=== PATIENT | female | born 1995 | race Caucasian/White ===

== ENCOUNTER 2018-01-13 03:01 | Emergency (ER) | payer MEDICAID | END 2018-01-13 03:30 | disposition home or self-care (01) | LOC: FTE 03:01 | DX: O99.89 Other specified diseases and conditions complicating pregnancy, childbirth and the puerperium (principal); R07.89 Other chest pain; Z3A.24 24 weeks gestation of pregnancy | CPT/HCPCS: 93005; 99283-25 ==

== ENCOUNTER 2018-01-13 04:20 | Outpatient (CLI) | payer MEDICAID ==
[2018-01-13 06:40] LABS: ADD UMIC YES; UR ASCORBIC ACID NEGATIVE (NEGATIVE); UR BACTERIA FEW /HPF (NONE SEEN); UR BILIRUBIN (Dip) NEGATIVE (NEGATIVE); UR BLOOD (Dip) NEGATIVE (NEGATIVE); UR CLARITY CLEAR (CLEAR); UR COLOR STRAW (YELLOW); UR GLUCOSE (Dip) NEGATIVE (NEGATIVE); UR KETONES (Dip) NEGATIVE (NEGATIVE); UR LEUKOCYTE ESTERASE (Dip) 1+ Leu/ul (NEGATIVE); UR NITRITE (Dip) NEGATIVE (NEGATIVE); UR RBC 1 /HPF (0-5); UR SPECIFIC GRAVITY (Dip) 1.003 (1.003-1.030); UR SQUAMOUS EPITHELIAL CELL FEW /HPF (FEW); UR TOTAL PROTEIN (Dip) NEGATIVE (NEGATIVE); UR UROBILINOGEN (Dip) NEGATIVE (NEGATIVE); UR WBC 4 /HPF (0-5)
[2018-01-13 08:06] LABS: ADD MAN DIFF? NO
[2018-01-13 08:08] LABS: BASOPHILS % 0.3 % (0.0-2.0); EOSINOPHILS # 0.1 10^3/ul (0.0-0.5); EOSINOPHILS % 1.3 % (0.0-7.0); HEMATOCRIT 38.6 % (37.0-47.0); HEMOGLOBIN 12.8 g/dl (12.0-16.0); LYMPHOCYTES # 1.8 10^3/ul (0.8-2.9); MEAN CORPUSCULAR HEMOGLOBIN 28.6 pg (29.0-33.0); MEAN CORPUSCULAR HGB CONC 33.2 g/dl (32.0-37.0); MEAN CORPUSCULAR VOLUME 86.2 fl (82.0-101.0); MEAN PLATELET VOLUME 10.5 fl (7.4-10.4); MONOCYTE # 0.5 10^3/ul (0.3-0.9); MONOCYTES % 4.3 % (0.0-11.0); NEUTROPHIL # 8.7 10^3/ul (1.6-7.5); NEUTROPHILS % 77.7 % (39.0-77.0); PLATELET COUNT 211 10^3/UL (140-415); RED BLOOD COUNT 4.48 10^6/ul (4.20-5.40)
[2018-01-13 08:08] LABS: WHITE BLOOD COUNT 11.1 10^3/ul (4.8-10.8)
[2018-01-13 09:03] LABS: ALANINE AMINOTRANSFERASE 26 IU/L (13-69); ALBUMIN/GLOBULIN RATIO 1.11; ALKALINE PHOSPHATASE 71 IU/L (42-121); ANION GAP 11 (8-16); ASPARTATE AMINO TRANSFERASE 25 IU/L (15-46); BILIRUBIN,INDIRECT 0.2 mg/dl (0-1.1); BILIRUBIN,TOTAL 0.2 mg/dl (0.2-1.3); BLOOD UREA NITROGEN 7 mg/dl (7-20); CALCIUM 9.7 mg/dl (8.4-10.2); CARBON DIOXIDE 25 mmol/L (21-31); CHLORIDE 106 mmol/L (97-110); CREATININE 0.56 mg/dl (0.44-1.00); GLUCOSE 80 mg/dl (70-220); POTASSIUM 4.4 mmol/L (3.5-5.1); SODIUM 138 mmol/L (135-144); TOTAL PROTEIN 7.6 g/dl (6.1-8.1); URIC ACID 3.6 mg/dl (3.1-7.9)
[2018-01-13 10:57] LABS: RUPTURE FETAL MEMBRANES NEGATIVE (NEGATIVE)
== END 2018-01-13 11:30 | disposition home or self-care (01) ==
LOC: OBT 04:20 → L-D 04:20 → OBT 11:30
DX: O62.9 Abnormality of forces of labor, unspecified (principal); Z3A.24 24 weeks gestation of pregnancy
CPT/HCPCS: 76815; 76817; 80053; 81001; 84112; 84560; 85025

== ENCOUNTER 2018-01-15 10:58 | Outpatient (CLI) | payer MEDICAID | END 2018-01-15 13:49 | disposition home or self-care (01) | LOC: OBT 10:58 → L-D 10:58 → OBT 13:49 | DX: O36.8320 Maternal care for abnormalities of the fetal heart rate or rhythm, second trimester, not applicable or unspecified (principal); Z3A.22 22 weeks gestation of pregnancy | CPT/HCPCS: 76818 ==

== ENCOUNTER 2018-03-23 12:50 | Outpatient (CLI) | payer MEDICAID ==
[2018-03-23 13:51] LABS: ADD MAN DIFF? NO
[2018-03-23 13:53] LABS: BASOPHILS % 0.3 % (0.0-2.0); EOSINOPHILS # 0.1 10^3/ul (0.0-0.5); EOSINOPHILS % 1.3 % (0.0-7.0); HEMATOCRIT 36.2 % (37.0-47.0); HEMOGLOBIN 12.3 g/dl (12.0-16.0); LYMPHOCYTES # 1.6 10^3/ul (0.8-2.9); LYMPHOCYTES % 17.3 % (15.0-51.0); MEAN CORPUSCULAR HEMOGLOBIN 28.9 pg (29.0-33.0); MEAN PLATELET VOLUME 10.2 fl (7.4-10.4); MONOCYTE # 0.3 10^3/ul (0.3-0.9); MONOCYTES % 3.6 % (0.0-11.0); NEUTROPHIL # 7.3 10^3/ul (1.6-7.5); NEUTROPHILS % 77.2 % (39.0-77.0); PLATELET COUNT 188 10^3/UL (140-415); RED BLOOD COUNT 4.26 10^6/ul (4.20-5.40); RED CELL DISTRIBUTION WIDTH 13.8 % (11.5-14.5)
[2018-03-23 13:53] LABS: WHITE BLOOD COUNT 9.5 10^3/ul (4.8-10.8)
[2018-03-23 14:12] LABS: INR 0.93; PROTIME 12.5 Sec (11.9-14.9)
[2018-03-23 14:13] LABS: PARTIAL THROMBOPLASTIN TIME 28.2 Sec (23.0-35.0)
[2018-03-23 14:17] LABS: ADD UMIC YES; UR ASCORBIC ACID NEGATIVE (NEGATIVE); UR BACTERIA FEW /HPF (NONE SEEN); UR BILIRUBIN (Dip) NEGATIVE (NEGATIVE); UR BLOOD (Dip) NEGATIVE (NEGATIVE); UR CLARITY SLIGHTLY CLOUDY (CLEAR); UR COLOR YELLOW (YELLOW); UR GLUCOSE (Dip) NEGATIVE (NEGATIVE); UR KETONES (Dip) TRACE mg/dL (NEGATIVE); UR LEUKOCYTE ESTERASE (Dip) TRACE Leu/ul (NEGATIVE); UR NITRITE (Dip) NEGATIVE (NEGATIVE); UR RBC 0 /HPF (0-5); UR TOTAL PROTEIN (Dip) NEGATIVE (NEGATIVE); UR UROBILINOGEN (Dip) NEGATIVE (NEGATIVE); UR WBC 4 /HPF (0-5)
[2018-03-23 14:19] LABS: ALANINE AMINOTRANSFERASE 18 IU/L (13-69); ALBUMIN/GLOBULIN RATIO 0.88; ALKALINE PHOSPHATASE 98 IU/L (42-121); ANION GAP 11 (8-16); ASPARTATE AMINO TRANSFERASE 23 IU/L (15-46); BILIRUBIN,INDIRECT 0.2 mg/dl (0-1.1); BILIRUBIN,TOTAL 0.2 mg/dl (0.2-1.3); BLOOD UREA NITROGEN 7 mg/dl (7-20); CALCIUM 9.6 mg/dl (8.4-10.2); CARBON DIOXIDE 24 mmol/L (21-31); CHLORIDE 105 mmol/L (97-110); CREATININE 0.53 mg/dl (0.44-1.00); GLUCOSE 124 mg/dl (70-220); POTASSIUM 3.8 mmol/L (3.5-5.1); SODIUM 136 mmol/L (135-144); TOTAL PROTEIN 6.4 g/dl (6.1-8.1)
[2018-03-23 14:43] LABS: URIC ACID 4.2 mg/dl (3.1-7.9)
== END 2018-03-23 15:00 | disposition home or self-care (01) ==
LOC: OBT 12:50 → L-D 12:50 → OBT 15:00
DX: O13.3 Gestational [pregnancy-induced] hypertension without significant proteinuria, third trimester (principal); O36.8330 Maternal care for abnormalities of the fetal heart rate or rhythm, third trimester, not applicable or unspecified; Z3A.33 33 weeks gestation of pregnancy
CPT/HCPCS: 36415; 76818; 80053; 81001; 84560; 85025; 85610; 85730

== ENCOUNTER 2018-03-24 18:23 | Outpatient (CLI) | payer MEDICAID ==
[2018-03-24 18:56] LABS: COLLECTION PERIOD 24 hrs
[2018-03-24 19:39] LABS: VOLUME 4100 mls
[2018-03-24 19:42] LABS: ADD MAN DIFF? NO
[2018-03-24 19:45] LABS: WHITE BLOOD COUNT 10.3 10^3/ul (4.8-10.8)
[2018-03-24 19:45] LABS: BASOPHILS % 0.4 % (0.0-2.0); EOSINOPHILS # 0.2 10^3/ul (0.0-0.5); EOSINOPHILS % 2.2 % (0.0-7.0); HEMATOCRIT 37.9 % (37.0-47.0); HEMOGLOBIN 12.7 g/dl (12.0-16.0); LYMPHOCYTES # 2.1 10^3/ul (0.8-2.9); LYMPHOCYTES % 19.9 % (15.0-51.0); MEAN CORPUSCULAR HEMOGLOBIN 28.5 pg (29.0-33.0); MEAN CORPUSCULAR HGB CONC 33.5 g/dl (32.0-37.0); MEAN CORPUSCULAR VOLUME 85.2 fl (82.0-101.0); MEAN PLATELET VOLUME 10.4 fl (7.4-10.4); MONOCYTE # 0.6 10^3/ul (0.3-0.9); MONOCYTES % 5.4 % (0.0-11.0); NEUTROPHIL # 7.4 10^3/ul (1.6-7.5); NEUTROPHILS % 71.8 % (39.0-77.0); PLATELET COUNT 213 10^3/UL (140-415); RED BLOOD COUNT 4.45 10^6/ul (4.20-5.40); RED CELL DISTRIBUTION WIDTH 13.6 % (11.5-14.5)
[2018-03-24 20:04] LABS: INR 0.93; PROTIME 12.6 Sec (11.9-14.9)
[2018-03-24 20:05] LABS: ALANINE AMINOTRANSFERASE 22 IU/L (13-69); ALBUMIN 3.2 g/dl (3.3-4.9); ALBUMIN/GLOBULIN RATIO 0.91; ALKALINE PHOSPHATASE 111 IU/L (42-121); ANION GAP 11 (8-16); ASPARTATE AMINO TRANSFERASE 23 IU/L (15-46); BILIRUBIN,INDIRECT 0.2 mg/dl (0-1.1); BILIRUBIN,TOTAL 0.2 mg/dl (0.2-1.3); BLOOD UREA NITROGEN 7 mg/dl (7-20); CALCIUM 9.6 mg/dl (8.4-10.2); CARBON DIOXIDE 23 mmol/L (21-31); CHLORIDE 106 mmol/L (97-110); CREATININE 0.51 mg/dl (0.44-1.00); GLUCOSE 100 mg/dl (70-220); PARTIAL THROMBOPLASTIN TIME 27.7 Sec (23.0-35.0); POTASSIUM 3.5 mmol/L (3.5-5.1); SODIUM 136 mmol/L (135-144); TOTAL PROTEIN 6.7 g/dl (6.1-8.1)
[2018-03-24 20:35] LABS: CREATININE,URINE RANDOM 47.44 mg/dl (20-320)
[2018-03-24 20:36] LABS: COLLECTION PERIOD 24 hrs; CREATININE CLEARANCE 264.8 mls/min (84.0-162.0); SCRET 0.51 mg/dl (0.44-1.00); VOLUME 4100 ml/24hrs
== END 2018-03-24 21:14 | disposition home or self-care (01) ==
LOC: OBT 18:23 → L-D 18:24 → OBT 21:14
DX: O13.3 Gestational [pregnancy-induced] hypertension without significant proteinuria, third trimester (principal); Z3A.34 34 weeks gestation of pregnancy
CPT/HCPCS: 76818; 80053; 82575; 84156; 84560; 85025; 85384; 85610; 85730

== ENCOUNTER 2018-04-20 13:25 | Outpatient (CLI) | payer MEDICAID ==
[2018-04-20 14:39] LABS: ADD MAN DIFF? NO
[2018-04-20 14:41] LABS: BASOPHILS % 0.3 % (0.0-2.0); EOSINOPHILS # 0.2 10^3/ul (0.0-0.5); EOSINOPHILS % 1.6 % (0.0-7.0); HEMATOCRIT 38.1 % (37.0-47.0); LYMPHOCYTES # 1.9 10^3/ul (0.8-2.9); LYMPHOCYTES % 18.9 % (15.0-51.0); MEAN CORPUSCULAR HEMOGLOBIN 29.1 pg (29.0-33.0); MEAN CORPUSCULAR HGB CONC 34.1 g/dl (32.0-37.0); MEAN CORPUSCULAR VOLUME 85.4 fl (82.0-101.0); MEAN PLATELET VOLUME 10.2 fl (7.4-10.4); MONOCYTE # 0.6 10^3/ul (0.3-0.9); MONOCYTES % 5.7 % (0.0-11.0); NEUTROPHIL # 7.3 10^3/ul (1.6-7.5); NEUTROPHILS % 73.2 % (39.0-77.0); PLATELET COUNT 210 10^3/UL (140-415); RED BLOOD COUNT 4.46 10^6/ul (4.20-5.40); RED CELL DISTRIBUTION WIDTH 14.1 % (11.5-14.5)
[2018-04-20 14:41] LABS: WHITE BLOOD COUNT 9.9 10^3/ul (4.8-10.8)
[2018-04-20 14:59] LABS: ALANINE AMINOTRANSFERASE 19 IU/L (13-69); ALBUMIN 3.7 g/dl (3.3-4.9); ALBUMIN/GLOBULIN RATIO 1.19; ALKALINE PHOSPHATASE 115 IU/L (42-121); ANION GAP 8 (5-13); ASPARTATE AMINO TRANSFERASE 22 IU/L (15-46); BILIRUBIN,INDIRECT 0.2 mg/dl (0-1.1); BILIRUBIN,TOTAL 0.2 mg/dl (0.2-1.3); BLOOD UREA NITROGEN 9 mg/dl (7-20); CALCIUM 9.4 mg/dl (8.4-10.2); CARBON DIOXIDE 21 mmol/L (21-31); CHLORIDE 108 mmol/L (97-110); CREATININE 0.49 mg/dl (0.44-1.00); Estimated GFR > 60 mL/min (>60); GLUCOSE 89 mg/dl (70-220); SODIUM 137 mmol/L (135-144); TOTAL PROTEIN 6.8 g/dl (6.1-8.1)
[2018-04-20 15:01] LABS: INR 0.93; PROTIME 12.6 Sec (11.9-14.9)
[2018-04-20 15:02] LABS: PARTIAL THROMBOPLASTIN TIME 27.4 Sec (23.0-35.0)
[2018-04-20 15:11] LABS: ADD UMIC YES; UR ASCORBIC ACID NEGATIVE (NEGATIVE); UR BACTERIA FEW /HPF (NONE SEEN); UR BILIRUBIN (Dip) NEGATIVE (NEGATIVE); UR BLOOD (Dip) NEGATIVE (NEGATIVE); UR CLARITY CLEAR (CLEAR); UR COLOR YELLOW (YELLOW); UR GLUCOSE (Dip) NEGATIVE (NEGATIVE); UR KETONES (Dip) NEGATIVE (NEGATIVE); UR LEUKOCYTE ESTERASE (Dip) TRACE Leu/ul (NEGATIVE); UR MUCUS FEW /HPF (NONE SEEN); UR NITRITE (Dip) NEGATIVE (NEGATIVE); UR RBC 1 /HPF (0-5); UR SPECIFIC GRAVITY (Dip) 1.013 (1.003-1.030); UR SQUAMOUS EPITHELIAL CELL FEW /HPF (FEW); UR TOTAL PROTEIN (Dip) NEGATIVE (NEGATIVE); UR UROBILINOGEN (Dip) NEGATIVE (NEGATIVE); UR WBC 12 /HPF (0-5)
[2018-04-20 15:23] LABS: POTASSIUM 4.1 mmol/L (3.5-5.1)
== END 2018-04-20 15:46 | disposition home or self-care (01) ==
LOC: OBT 13:25 → L-D 13:25 → OBT 15:46
DX: O16.3 Unspecified maternal hypertension, third trimester (principal); Z3A.37 37 weeks gestation of pregnancy
CPT/HCPCS: 76818; 80053; 81001; 84560; 85025; 85384; 85610; 85730

== ENCOUNTER 2018-04-28 14:20 | Inpatient (IN) | payer MEDICAID ==
[2018-04-28] MEDS ORDERED: LIDOCAINE 1% (MPF) 30 ML INJ INJ (16:00)
[2018-04-28] MEDS ORDERED: BUTORPHANOL 2 MG INJ IV (16:00)
[2018-04-28] MEDS ORDERED: METHYLERGONOVINE 0.2 MG INJ IM (16:00)
[2018-04-28] MEDS ORDERED: OXYTOCIN 30 UNITS/LR 500 ML IV ×2 (16:00)
[2018-04-28] MEDS ORDERED: CARBOPROST 250 MCG INJ IM (16:00)
[2018-04-28 16:32] LABS: ADD MAN DIFF? NO
[2018-04-28 16:34] LABS: WHITE BLOOD COUNT 8.5 10^3/ul (4.8-10.8)
[2018-04-28 16:34] LABS: BASOPHILS % 0.4 % (0.0-2.0); EOSINOPHILS # 0.1 10^3/ul (0.0-0.5); EOSINOPHILS % 1.6 % (0.0-7.0); HEMATOCRIT 39.5 % (37.0-47.0); HEMOGLOBIN 13.3 g/dl (12.0-16.0); LYMPHOCYTES # 1.7 10^3/ul (0.8-2.9); LYMPHOCYTES % 20.4 % (15.0-51.0); MEAN CORPUSCULAR HEMOGLOBIN 28.9 pg (29.0-33.0); MEAN CORPUSCULAR HGB CONC 33.7 g/dl (32.0-37.0); MEAN CORPUSCULAR VOLUME 85.7 fl (82.0-101.0); MEAN PLATELET VOLUME 10.5 fl (7.4-10.4); MONOCYTE # 0.5 10^3/ul (0.3-0.9); MONOCYTES % 5.9 % (0.0-11.0); NEUTROPHIL # 6.1 10^3/ul (1.6-7.5); NEUTROPHILS % 71.3 % (39.0-77.0); PLATELET COUNT 216 10^3/UL (140-415); RED BLOOD COUNT 4.61 10^6/ul (4.20-5.40); RED CELL DISTRIBUTION WIDTH 14.3 % (11.5-14.5)
[2018-04-28] MEDS: LACTATED RINGER'S 1,000 ML IV (16:43)
[2018-04-28 17:23] LABS: ALANINE AMINOTRANSFERASE 20 IU/L (13-69); ALBUMIN 3.6 g/dl (3.3-4.9); ALBUMIN/GLOBULIN RATIO 1.02; ALKALINE PHOSPHATASE 117 IU/L (42-121); ANION GAP 12 (5-13); ASPARTATE AMINO TRANSFERASE 25 IU/L (15-46); BILIRUBIN,INDIRECT 0.2 mg/dl (0-1.1); BILIRUBIN,TOTAL 0.2 mg/dl (0.2-1.3); BLOOD UREA NITROGEN 10 mg/dl (7-20); CALCIUM 9.3 mg/dl (8.4-10.2); CARBON DIOXIDE 22 mmol/L (21-31); CHLORIDE 104 mmol/L (97-110); CREATININE 0.52 mg/dl (0.44-1.00); Estimated GFR > 60 mL/min (>60); GLUCOSE 96 mg/dl (70-220); POTASSIUM 3.9 mmol/L (3.5-5.1); PROTIME 12.2 Sec (11.9-14.9); SODIUM 138 mmol/L (135-144); TOTAL PROTEIN 7.1 g/dl (6.1-8.1); URIC ACID 4.4 mg/dl (3.1-7.9)
[2018-04-28 17:24] LABS: PARTIAL THROMBOPLASTIN TIME 26.4 Sec (23.0-35.0)
[2018-04-28] MEDS: OXYTOCIN 30 UNITS/LR 500 ML IV (18:41)
[2018-04-29] MEDS: LACTATED RINGER'S 1,000 ML IV ×2 (00:34→04:35)
[2018-04-29] MEDS ORDERED: FENTAnyl 2MCG/ML-ROPIV 0.2% 100 ML (00:40)
[2018-04-29] MEDS ORDERED: NALOXONE (0.4 MG/ML) INJ IV (01:00)
[2018-04-29] MEDS: FENTAnyl 2MCG/ML-ROPIV 0.2% 100 ML BAG EPI ×2 (06:36→06:47)
[2018-04-29] MEDS: OXYTOCIN 30 UNITS/LR 500 ML IV (08:13)
[2018-04-29] MEDS: MISOPROSTOL 200 MCG TAB PR (08:14)
[2018-04-29] MEDS: ACETAMINOPHEN 500 MG TAB PO (09:54)
[2018-04-29] MEDS ORDERED: LANOLIN 7 GM TUBE TOP (10:30)
[2018-04-29] MEDS ORDERED: DIPHENHYDRAMINE 50 MG INJ IV (10:30)
[2018-04-29] MEDS ORDERED: METHYLERGONOVINE 0.2 MG INJ IM (10:30)
[2018-04-29] MEDS ORDERED: ONDANSETRON 4 MG INJ IV (10:30)
[2018-04-29] MEDS ORDERED: CARBOPROST 250 MCG INJ IM (10:30)
[2018-04-29] MEDS ORDERED: MISOPROSTOL 200 MCG TAB PR (10:30)
[2018-04-29] MEDS ORDERED: OXYTOCIN 30 UNITS/LR 500 ML IV (10:30)
[2018-04-29] MEDS ORDERED: ZOLPIDEM 5 MG TAB PO (10:30)
[2018-04-29] MEDS ORDERED: DIBUCAINE 1% 30 GM OINT TOP (10:30)
[2018-04-29] MEDS: BENZOCAINE 20% 56 ML SPRAY TOP (10:57)
[2018-04-29] MEDS: WITCH HAZEL/GLYCERIN PAD PR (10:57)
[2018-04-29] MEDS: IBUPROFEN 600 MG TAB PO ×2 (11:48→19:06)
[2018-04-29] MEDS: LACTATED RINGER'S 1,000 ML IV* ×2 (13:06→22:22)
[2018-04-29 15:07] LABS: RAPID PLASMA REAGIN NONREACTIVE (NR)
[2018-04-29] MEDS: HYDROCODONE/APAP (5/325) TAB PO ×2 (15:34→20:06)
[2018-04-29] MEDS: DEXTROSE 5%-LR 1,000 ML IV ×3 (22:21→22:23)
[2018-04-29] MEDS: MINERAL OIL LIGHT 10 ML VIAL TOP (22:21)
[2018-04-30] MEDS: HYDROCODONE/APAP (5/325) TAB PO ×6 (00:05→22:52)
[2018-04-30] MEDS: DEXTROSE 5%-LR 1,000 ML IV ×2 (02:07→10:07)
[2018-04-30] MEDS: LACTATED RINGER'S 1,000 ML IV* ×2 (04:29→10:07)
[2018-04-30 05:23] LABS: ADD MAN DIFF? NO; BASOPHILS % 0.4 % (0.0-2.0); EOSINOPHILS # 0.2 10^3/ul (0.0-0.5); EOSINOPHILS % 1.6 % (0.0-7.0); HEMOGLOBIN 11.5 g/dl (12.0-16.0); LYMPHOCYTES # 2.4 10^3/ul (0.8-2.9); LYMPHOCYTES % 22.9 % (15.0-51.0); MEAN CORPUSCULAR HEMOGLOBIN 28.8 pg (29.0-33.0); MEAN CORPUSCULAR HGB CONC 32.9 g/dl (32.0-37.0); MEAN CORPUSCULAR VOLUME 87.5 fl (82.0-101.0); MEAN PLATELET VOLUME 10.7 fl (7.4-10.4); MONOCYTE # 0.6 10^3/ul (0.3-0.9); MONOCYTES % 5.7 % (0.0-11.0); NEUTROPHIL # 7.3 10^3/ul (1.6-7.5); PLATELET COUNT 175 10^3/UL (140-415); RED CELL DISTRIBUTION WIDTH 14.7 % (11.5-14.5)
[2018-04-30 05:23] LABS: WHITE BLOOD COUNT 10.5 10^3/ul (4.8-10.8)
[2018-04-30] MEDS: IBUPROFEN 600 MG TAB PO ×4 (05:39→17:18)
[2018-04-30] MEDS: INFLUENZA VIRUS VACCINE 0.5 ML (DISPENSING) IM* (17:24)
[2018-04-30] MEDS: BENZOCAINE 20% 56 ML SPRAY TOP (21:38)
[2018-04-30] MEDS: ACETAMINOPHEN 325 MG TAB PO (21:39)
[2018-04-30] MEDS: WITCH HAZEL/GLYCERIN PAD PR (21:39)
[2018-05-01] MEDS: IBUPROFEN 600 MG TAB PO ×3 (02:14→11:17)
[2018-05-01] MEDS: MEASLES,MUMPS,RUBELLA VACCINE INJ SC* (07:37)
[2018-05-01] MEDS: HYDROCODONE/APAP (5/325) TAB PO ×2 (07:50→14:31)
[2018-05-01] MEDS: SENNA/DOCUSATE NA (8.6MG/50MG) TAB PO (08:43)
[2018-05-01] MEDS: DIPHTH/TET/ACEL PERTUSS (ADULT) 0.5 ML VIAL IM* (08:43)
[2018-05-01] MEDS ORDERED: INFLUENZA VIRUS VACCINE 0.5 ML (DISPENSING) IM* (09:00)
== END 2018-05-01 16:00 | disposition home or self-care (01) | DRG 807 ==
LOC: OBT 14:20 → MS1 04-29 10:56 → L-D 14:20 → OBT 14:48 → L-D 14:35
PROC: 10D07Z6 Extraction of Products of Conception, Vacuum, Via Natural or Artificial Opening (ICD-10-PCS; principal; 2018-04-29)
PROC: 0W8NXZZ Division of Female Perineum, External Approach (ICD-10-PCS; 2018-04-29)
DX: O13.4 Gestational [pregnancy-induced] hypertension without significant proteinuria, complicating childbirth (principal); Z37.0 Single live birth; O69.81X0 Labor and delivery complicated by cord around neck, without compression, not applicable or unspecified; O76 Abnormality in fetal heart rate and rhythm complicating labor and delivery; Z3A.39 39 weeks gestation of pregnancy
CPT/HCPCS: 62319; 76815; 80053; 84560; 85025; 85610; 85730; 86592; 86850; 86900; 86901; 90686; 90715; 99464